=== PATIENT | male | born 1970 | race Caucasian/White ===

== ENCOUNTER 2025-05-23 09:36 | Emergency (ER) | payer MEDICAID ==
[~2025-05-23] VITALS: Ht 172.7 cm; Wt 95.3 kg
[2025-05-23 10:37] LABS: PLATELET COUNT (AUTO) 229 K/uL (150-450); RED BLOOD CELL COUNT(AUTO) 4.92 MIL/uL (4.5-6.0); RED CELL DISTRIBUTION WIDTH 13.0 % (11.5-15.0); WHITE BLOOD COUNT (AUTO) 8.5 K/uL (4.3-11.0)
[2025-05-23 10:54] LABS: CALCIUM, SERUM 8.8 mg/dL (8.5-10.1); CREATININE 0.9 mg/dL (0.6-1.3); SODIUM SERUM 140 mmol/L (136-145); UREA NITROGEN, BLOOD 20 mg/dL (7-18)
[2025-05-23 10:56] LABS: ASPARTATE AMINOTRANSFERASE 41 U/L (15-37); TOTAL PROTEIN, SERUM 7.1 g/dL (6.4-8.2)
[2025-05-23 10:58] LABS: ALCOHOL, BLOOD < 3 mg/dL (0-10)
[2025-05-23 11:38] LABS: APPEARANCE,URINE CLEAR (CLEAR); BLOOD, URINE NEGATIVE Ery/uL (NEGATIVE); LEUKOCYTE ESTERASE ,URINE NEGATIVE (NEGATIVE); NITRITE, URINE NEGATIVE (NEGATIVE); UGLUCOSE 2+ mg/dL (NEGATIVE)
[2025-05-23 11:43] LABS: BARBITURATE, URINE NEGATIVE (NEGATIVE); BENZODIAZEPINE, URINE NEGATIVE (NEGATIVE); CANNABINOID, URINE NEGATIVE (NEGATIVE); COCCAINE, URINE NEGATIVE (NEGATIVE); OPIATE, URINE NEGATIVE (NEGATIVE)
[2025-05-23 11:44] LABS: ADD URINE CULTURE NO; SQUAMOUS EPITHELIAL CELL,UR Few /HPF (None Seen)
[2025-05-23 11:45] LABS: AMPHETAMINE, URINE POSITIVE (NEGATIVE)
[2025-05-23 17:03] VITALS: BP 138/77; TEMP 98.7; O2SAT 96
== END 2025-05-23 16:35 ==
LOC: ER 09:44
DX: U07.1 COVID-19 (principal); F23 Brief psychotic disorder; F22 Delusional disorders; F15.10 Other stimulant abuse, uncomplicated; R73.9 Hyperglycemia, unspecified; I10 Essential (primary) hypertension; Z59.00 Homelessness unspecified; Z79.899 Other long term (current) drug therapy
CPT/HCPCS: 36415; 80048-TC; 80076-TC; 81001; 85025-TC; G0480